=== PATIENT | female | born 1990 | race Caucasian/White ===

== ENCOUNTER → 2017-10-07 | Emergency (ER) | payer SELFPAY ==
[~2017-10-07] VITALS: Ht 157.5 cm; Wt 103.4 kg
[~2017-10-07] MED LIST: IBUPROFEN 600 MG TAB PO STA; ONDANSETRON HCL INJ 2 MG/ML VIAL IV STA; SODIUM CHLORIDE 0.9% 1000ML 1,000 ML IV STA
[2017-10-07 17:40] LABS: BASOPHILS % 0.5 % (0.0-1.0); EOSINOPHILS # (AUTO) 0.1 (0.0-0.4); HEMATOCRIT 39.1 % (34.2-44.1); HEMOGLOBIN 13.7 g/dL (12.0-16.0); LYMPHOCYTES # (AUTO) 1.4 (1.0-3.2); LYMPHOCYTES % 26.2 % (18.0-39.1); MEAN CORPUSCULAR HEMOGLOBIN 29.6 pg (28-32); MEAN CORPUSCULAR VOLUME 84.4 fL (81-99); MONOCYTES # (AUTO) 0.4 (0.2-0.8); MONOCYTES % 6.9 % (4.4-11.3); NEUTROPHILS # (AUTO) 3.5 (2.1-6.9); NEUTROPHILS % 64.4 % (38.7-80.0); PLATELET COUNT 225 x10e3/uL (140-360); RED BLOOD COUNT 4.63 x10e6/uL (3.6-5.1); RED CELL DISTRIBUTION WIDTH 12.1 % (11.7-14.4)
[2017-10-07 17:55] LABS: ALANINE AMINOTRANSFERASE 36 IU/L (0-55); ALBUMIN 3.3 g/dL (3.5-5.0); ALBUMIN/GLOBULIN RATIO 0.9 (0.8-2.0); ALKALINE PHOSPHATASE 71 IU/L (40-150); AMYLASE 35 U/L (25-125); BLOOD UREA NITROGEN 7 mg/dL (7-26); BUN/CREATININE RATIO 10 (6-25); CALCIUM 9.1 mg/dL (8.4-10.2); CARBON DIOXIDE 22 mmol/L (22-29); CHLORIDE 107 mmol/L (98-107); CREATININE, SERUM 0.68 mg/dL (0.57-1.11); EST GLOMERULAR FILTRATION RATE > 60 ML/MIN (60-); GLUCOSE 111 mg/dL (74-118); LIPASE 14 U/L (8-78); SODIUM 139 mmol/L (136-145)
[2017-10-07 18:01] LABS: HCG,QUANTITATIVE < 1.20 mIU/mL (0-10)
[2017-10-07 18:03] LABS: BILIRUBIN,URINE NEGATIVE (NEGATIVE); CLARITY,URINE SL CLOUDY (CLEAR); COLOR,URINE YELLOW (YELLOW); KETONES,URINE NEGATIVE (NEGATIVE); LEUKOCYTE ESTERASE ,URINE TRACE (NEGATIVE); NITRITE,URINE NEGATIVE (NEGATIVE); PROTEIN,URINE DIPSTICK TRACE (NEGATIVE); URINE UROBILINOGEN 1 mg/dL (0.2 - 1)
[2017-10-07 18:14] LABS: RBC,URINE 0-5 /HPF (0-5)
[2017-10-07 18:15] LABS: BACTERIA,URINE FEW /HPF; EPITHELIAL CELLS,URINE RARE /LPF
[2017-10-07 19:02] VITALS: BP 118/79
== END | disposition home or self-care (01) ==
LOC: ER 15:49
DX: R50.9 Fever, unspecified (principal); M79.1 Myalgia; K04.7 Periapical abscess without sinus; B20 Human immunodeficiency virus [HIV] disease; B19.20 Unspecified viral hepatitis C without hepatic coma; E66.9 Obesity, unspecified
CPT/HCPCS: 36415; 80053; 81001; 82150; 83690; 84702; 85025; 87400; 99284; J2405; J7030